=== PATIENT | male | born 1980 | race Two or more races ===

== ENCOUNTER 2022-05-15 12:17 | Inpatient (IN) | payer MEDICARE, OTHER ==
[~2022-05-15] VITALS: Ht 188 cm; Wt 136.1 kg
--- NOTE | 2022-05-15 12:33 | NUR ---
[id number] C/O FEELING DIZZY STANDING UP WHILE AT ON LICENSE OF [facility]. 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 PT IS A&OX4. ATTACHED TO MONITOR. DR PAGAN AT BEDSIDE. AWAITING MD ORDERS.
--- NOTE | 2022-05-15 12:50 | NUR ---
TECH AT BEDSIDE FOR EKG
--- NOTE | 2022-05-15 12:50 | NUR ---
COVID SWAB COLLECTED AND SENT TO LAB
[2022-05-15] MEDS ORDERED: IV NS 0.9% 1,000 ML BAG IV ONE (13:00)
[2022-05-15 13:11] LABS: BASOPHILS % (AUTO) 0.3 % (0.0-2.0); EOSINOPHILS % (AUTO) 0.7 % (0.0-6.0); HEMATOCRIT 48 % (39-51); HEMOGLOBIN 15.5 g/dL (13.5-17.5); LYMPHOCYTES # (AUTO) 2.5 K/uL (0.8-4.8); LYMPHOCYTES % (AUTO) 17.5 % (20.0-44.0); MEAN CORPUSCULAR HGB CONC 32 g/dl (31.0-36.0); MEAN CORPUSCULAR VOLUME 83 fL (80-96); MONOCYTES # (AUTO) 1.8 K/uL (0.1-1.30); MONOCYTES % (AUTO) 12.6 % (2.0-12.0); NEUTROPHILS # (AUTO) 9.9 K/uL (1.8-8.9); NEUTROPHILS % (AUTO) 68.9 % (43.0-81.0); PLATELET COUNT (AUTO) 415 K/uL (150-450); RED BLOOD CELL COUNT(AUTO) 5.75 MIL/uL (4.5-6.0); WHITE BLOOD COUNT (AUTO) 14.4 K/uL (4.3-11.0)
--- NOTE | 2022-05-15 13:27 | NUR ---
URINE COLLECTED AND SENT
--- NOTE | 2022-05-15 13:42 | NUR ---
[facility] ([facility], [place]) [phone].
[2022-05-15 13:44] LABS: CALCIUM, SERUM 9.5 mg/dL (8.5-10.1); CARBON DIOXIDE 27 mmol/L (21-32); CHLORIDE 100 mmol/L (98-107); CREATININE 3.7 mg/dL (0.6-1.3); GLUCOSE 92 mg/dL (74-106); POTASSIUM 3.5 mmol/L (3.5-5.1); SODIUM SERUM 138 mmol/L (136-145); UREA NITROGEN, BLOOD 27 mg/dL (7-18)
[2022-05-15 13:47] LABS: BILIRUBIN,URINE SMALL (NEGATIVE); COLOR,URINE DARK YELLOW (YELLOW); LEUKOCYTE ESTERASE ,URINE NEGATIVE (NEGATIVE); NITRITE, URINE NEGATIVE (NEGATIVE); PH,URINE 5.5 (5.0-8.0); PROTEIN,URINE 30 mg/dl (NEGATIVE); UGLUCOSE NEGATIVE (NEGATIVE)
[2022-05-15 13:50] LABS: ALANINE AMINOTRANSFERASE 60 U/L (12-78); ALBUMIN 4.6 g/dL (3.4-5.0); ALKALINE PHOSPHATASE 99 U/L (46-116); ASPARTATE AMINOTRANSFERASE 26 U/L (15-37); BILIRUBIN,DIRECT 0.2 mg/dL (0.0-0.2); BILIRUBIN,TOTAL 1.2 mg/dL (0.2-1.0); TOTAL PROTEIN, SERUM 8.2 g/dL (6.4-8.2)
[2022-05-15] MEDS ORDERED: RIBO50TA PO (13:50)
[2022-05-15] MEDS ORDERED: TRAZ-182 PO (13:50)
[2022-05-15] MEDS ORDERED: LOSA25TA27 PO (13:50)
[2022-05-15] MEDS ORDERED: ARIP20TA4 PO (13:50)
--- NOTE | 2022-05-15 14:34 | NUR ---
room 120-1
[2022-05-15] MEDS ORDERED: HYDROCODONE/APAP 10/325MG TABLET PO PRN (15:00)
[2022-05-15] MEDS ORDERED: ACETAMINOPHEN 325 MG TABLET PO PRN (15:00)
[2022-05-15] MEDS ORDERED: TEMAZEPAM 15 MG CAPSULE PO PRN (15:00)
[2022-05-15] MEDS ORDERED: MAG HYDROX/AL HYDROX/SIMETH 30 ML UDC PO PRN (15:00)
[2022-05-15] MEDS ORDERED: HYDROCODONE/APAP 5/325MG TABLET PO PRN (15:00)
[2022-05-15] MEDS ORDERED: MAGNESIUM HYDROXIDE 30 ML UDC PO PRN (15:00)
[2022-05-15] MEDS ORDERED: ONDANSETRON HCL/PF 4 MG/2 ML VIAL IVP PRN (15:00)
[2022-05-15] MEDS ORDERED: Z GUARD REMEDY 4 OZ OINT TP PRN (15:00)
--- NOTE | 2022-05-15 15:01 | NUR ---
REPORT GIVEN TO NURSE LEHMAN FOR NILO
--- NOTE | 2022-05-15 15:32 | NUR ---
PT TRANSPORTED WITH ACLS PROTOCOLS IN PLACE
[2022-05-15 15:47] LABS: BACTERIA,URINE None seen /HPF (None Seen); RBC,URINE 0-2 /HPF (0-2); SQUAMOUS EPITHELIAL CELL,UR None Seen /HPF (None Seen); WBC,URINE 0-2 /HPF (0-3)
[2022-05-15] MEDS: NICOTINE PATCH (21MG) 21 MG PATCH.TD24 TD SCH (18:14)
[2022-05-15] MEDS: IV NS 0.9% 1,000 ML IV PRN (18:15)
--- NOTE | 2022-05-15 19:45 | NUR ---
RN OPENING NOTES: RECEIVED PT IN BED, AWAKE, ALERT/ORIENTED X4 AND VERBALLY RESPONSIVE. IN ROOM AIR AND PT TOLERATED WELL. BREATHING EVEN AND UNLABORED. IV ACCESS ON RAC# 20G INTACT AND PATENT. NO S/S OF INFILTRATIONS. RUNNING NS @125CC/HR. NO C/O PAIN OR DISCOMFORT. NO ACUTE DISTRESS. PT REFUSED TO DO THE BODY ASSESSMENT DURING PREVIOUS SHIFT. WILL TRY AGAIN. ALL SAFETY MEASURES IN PLACE. BED IN LOWEST POSITION AND LOCKED. SIDE RAILS UP X 2, PROVIDED URINAL. PLACE CALL LIGHT WITH IN REACH. WILL CONTINUE TO MONITOR
--- NOTE | 2022-05-15 19:45 | NUR ---
RN NOTE PT RESTING IN BED, AWAKE ALERT AND RESPONSIVE. IN ROOM AIR. NOT IN RESPI DISTRESS. PT WITH IV ACCESS ON RAC G20 WITH IVF NS @125CC/HR. TOLERATING WELL. PT REFUSED SKIN CHECK AND TO CHANGE GOWN ON INITIAL ASSESSMENT, PT DENIES ANY WOUNDS. DUE MEDS GIVEN. SAFETY MEASURES FOLLOWED. WILL CONT TO MONITOR. V.S STABLE. WILL ENDORSE TO NEXT RN.
[2022-05-15 20:00] VITALS: BP 100/55
[2022-05-16] VITALS: BP 116/60
[2022-05-16 04:00] VITALS: BP 108/63
[2022-05-16] MEDS: IV NS 0.9% 1,000 ML IV PRN (05:11)
--- NOTE | 2022-05-16 06:45 | NUR ---
RN CLOSING NOTES: PT IN BED, AWAKE, ALERT/ORIENTED X3-4 AND VERBALLY RESPONSIVE. IN ROOM AIR AND PT TOLERATED WELL. O2 SAT 98%. BREATHING EVEN AND UNLABORED. IV ACCESS ON RAC# 20G INTACT AND PATENT. NO S/S OF INFILTRATIONS. RUNNING NS @125CC/HR. NO C/O PAIN OR DISCOMFORT. NO ACUTE DISTRESS. PT STILL REFUSED TO DO THE BODY ASSESSMENT AND REFUSED TO BE CHANGED. LAB UNABLE TO DO THE BLOOD DRAWN DUE TO HARD STICK. WILL COME BACK AGAIN. ALL SAFETY MEASURES IN PLACE. BED IN LOWEST POSITION AND LOCKED. SIDE RAILS UP X 2. PLACE CALL LIGHT WITH IN REACH. WILL ENDORSE TO MORNING SHIFT NURSE.
[2022-05-16] MEDS ORDERED: PANTOPRAZOLE 40 MG TABLET.DR PO SCH (07:30)
--- NOTE | 2022-05-16 07:30 | NUR ---
telecine operator opening note patient is alert and oriented x4. patient is on room air tolerating at above 95%.patient has iv on the right arm. iv patent and flushing well. patient is fall risk and bed alarm on.all safety measures in place. clal light with reach.bed locked at lowest positin.side rails upx2.
[2022-05-16 08:00] VITALS: BP 128/72
[2022-05-16] MEDS: NICOTINE PATCH (21MG) 21 MG PATCH.TD24 TD SCH (08:33)
[2022-05-16 09:16] LABS: BASOPHILS % (AUTO) 0.5 % (0.0-2.0); EOSINOPHILS % (AUTO) 3.2 % (0.0-6.0); HEMATOCRIT 44 % (39-51); HEMOGLOBIN 14.5 g/dL (13.5-17.5); LYMPHOCYTES # (AUTO) 2.1 K/uL (0.8-4.8); LYMPHOCYTES % (AUTO) 24.4 % (20.0-44.0); MEAN CORPUSCULAR HGB CONC 33 g/dl (31.0-36.0); MEAN CORPUSCULAR VOLUME 83 fL (80-96); MONOCYTES # (AUTO) 0.3 K/uL (0.1-1.30); MONOCYTES % (AUTO) 3.9 % (2.0-12.0); PLATELET COUNT (AUTO) 309 K/uL (150-450); RED BLOOD CELL COUNT(AUTO) 5.33 MIL/uL (4.5-6.0); WHITE BLOOD COUNT (AUTO) 8.8 K/uL (4.3-11.0)
[2022-05-16 09:40] LABS: CALCIUM, SERUM 8.3 mg/dL (8.5-10.1); CREATININE 1.4 mg/dL (0.6-1.3); PHOSPHORUS 2.3 mg/dL (2.5-4.9); POTASSIUM 3.4 mmol/L (3.5-5.1)
[2022-05-16 09:49] LABS: THYROID STIMULATING HORMONE 0.756 uIU/mL (0.358-3.74)
[2022-05-16] MEDS ORDERED: K PHOS NEUTRAL 250 MG TABLET PO ONE (16:30)
== END 2022-05-16 17:18 | disposition home or self-care (01) | DRG 640 ==
LOC: ER 12:20 → TELE1 14:48 → MEDSG1 05-16 13:18
PROVIDERS: ADMIT Nurse Practitioner Acute Care; ATTEND Nurse Practitioner Acute Care
DX: E86.1 Hypovolemia (principal); N17.0 Acute kidney failure with tubular necrosis; E86.0 Dehydration; N14.1 Nephropathy induced by other drugs, medicaments and biological substances; E66.01 Morbid (severe) obesity due to excess calories; G89.29 Other chronic pain; E11.9 Type 2 diabetes mellitus without complications; I10 Essential (primary) hypertension; F20.9 Schizophrenia, unspecified; M19.90 Unspecified osteoarthritis, unspecified site; Z88.8 Allergy status to other drugs, medicaments and biological substances; Z79.899 Other long term (current) drug therapy; F31.9 Bipolar disorder, unspecified; F17.210 Nicotine dependence, cigarettes, uncomplicated; Z68.38 Body mass index [BMI] 38.0-38.9, adult; E87.6 Hypokalemia; E66.9 Obesity, unspecified; T44.5X5A Adverse effect of predominantly beta-adrenoreceptor agonists, initial encounter; Y92.009 Unspecified place in unspecified non-institutional (private) residence as the place of occurrence of the external cause
CPT/HCPCS: 36415; 70450-TC; 71045-TC; 76770-TC; 80048-TC; 80076-TC; 81001; 82533; 83605-TC; 83735-TC; 84100-TC; 84443-TC; 84484-TC; 85025-TC; 85730-TC; 87040-TC; 87081-TC; 87086-TC; 93307-TC; C9803; G0378; J7030